=== PATIENT | male | born 1975 | race Caucasian/White ===

== ENCOUNTER 2020-07-29 20:17 | Inpatient (IN) | payer BC ==
[2020-07-29 20:31] VITALS: BMI 24.3
[2020-07-29] MEDS ORDERED: ACETAMINOPHEN 1000 MG/100 ML VIAL (NON FORMULARY) IVPB ONE (20:32)
[2020-07-29] MEDS ORDERED: DEXAMETHASONE SOD PHOSPHATE 10 MG/1 ML VIAL IVPUSH ONE (20:32)
[2020-07-29] MEDS ORDERED: SODIUM CHLORIDE 0.9% 500 ML INFUS.BAG IV ONE (20:33)
[2020-07-29 21:48] LABS: BASO % 0.1 % (0-2.0); HEMATOCRIT 41.5 % (35.4-49); HEMOGLOBIN 13.8 GM/dL (11.7-16.9); LYMPH % 2.5 % (8-40); MCH 29.5 pg (25.7-33.7); MCHC 33.4 g/dl (32.0-35.9); MEAN CELL VOLUME 88.4 fl (80-96); MEAN PLT VOLUME 9.3 fl (7.5-11.1); MONO % 2.2 % (3.8-10.2); NEUT % 95.2 % (42.8-82.8); PLATELET COUNT 227 K/MM3 (134-434); RBC 4.69 M/mm3 (4.00-5.60); RDW 14.1 % (11.9-15.9); WHITE BLOOD COUNT 14.5 K/mm3 (4.0-10.0)
[2020-07-29 21:55] LABS: INR 1.34 (0.83-1.09); PROTHROMBIN TIME (PATIENT) 16.3 SEC (9.7-13.0)
[2020-07-29 21:57] LABS: ACTIVATED PTT 30.7 SECONDS (25.2-36.5)
[2020-07-29 22:02] LABS: POTASSIUM 4.3 mmol/L (3.5-5.1)
[2020-07-29 22:04] LABS: CALCIUM 8.3 mg/dL (8.5-10.1)
[2020-07-29 22:05] LABS: ALBUMIN 3.2 g/dl (3.4-5.0); BLOOD UREA NITROGEN 9.9 mg/dL (7-18)
[2020-07-29 22:07] LABS: BILIRUBIN,DIRECT 0.2 mg/dL (0.0-0.2)
[2020-07-29 22:09] LABS: BILIRUBIN,TOTAL 0.3 mg/dL (0.2-1); TOT PROT 7.6 g/dl (6.4-8.2)
[2020-07-29 23:15] LABS: PLATELET ESTIMATE ADEQUATE
[2020-07-30] MEDS ORDERED: AZITHROMYCIN IVPB 500 MG in DEXTROSE 5%-WATER - 250 ML IVPB ONE (00:42)
[2020-07-30] MEDS ORDERED: AZITHROMYCIN IVPB 0 MG/0 ML BAG IVPB ONE (01:08)
[2020-07-30] MEDS ORDERED: cefTRIAXone SODIUM 1 GM VIAL ONE (01:08)
[2020-07-30] MEDS: CEFTRIAXONE 1 GM in DEXTROSE 5%-WATER - 50 ML IVPB SCH ×2 (01:27→09:17)
[2020-07-30 03:07] LABS: URINE APPEARANCE CLEAR; URINE BILIRUBIN NEGATIVE (NEGATIVE); URINE COLOR YELLOW; URINE GLUCOSE (UA) NEGATIVE (NEGATIVE); URINE KETONE NEGATIVE (NEGATIVE)
[2020-07-30 03:08] LABS: URINE LEUK ESTERASE NEGATIVE (NEGATIVE); URINE NITRITE NEGATIVE (NEGATIVE); URINE PROTEIN 100 (NEGATIVE); URINE RBC 8.9 /uL (0-23.9)
[2020-07-30 03:09] LABS: EPI CELLS 29.2 /uL (0-25.1)
[2020-07-30 03:10] LABS: URINE BACTERIA 111.8 /uL (0-1359)
[2020-07-30 06:37] LABS: HEMATOCRIT 40.4 % (35.4-49); HEMOGLOBIN 13.5 GM/dL (11.7-16.9); MCH 29.7 pg (25.7-33.7); MCHC 33.5 g/dl (32.0-35.9); MEAN CELL VOLUME 88.5 fl (80-96); PLATELET COUNT 245 K/MM3 (134-434); RBC 4.56 M/mm3 (4.00-5.60); RDW 13.9 % (11.9-15.9); WHITE BLOOD COUNT 12.3 K/mm3 (4.0-10.0)
[2020-07-30 07:13] LABS: POTASSIUM 5.2 mmol/L (3.5-5.1)
[2020-07-30 07:16] LABS: ALBUMIN 2.9 g/dl (3.4-5.0); BLOOD UREA NITROGEN 11.5 mg/dL (7-18); MAGNESIUM 2.5 mg/dL (1.8-2.4)
[2020-07-30 07:19] LABS: CREATININE 0.9 mg/dL (0.55-1.3); PHOSPHOROUS 3.7 mg/dL (2.5-4.9)
[2020-07-30 07:21] LABS: BILIRUBIN,TOTAL 0.2 mg/dL (0.2-1)
[2020-07-30] MEDS ORDERED: ASCORBIC ACID 500 MG TABLET (FP) ONE (07:36)
[2020-07-30] MEDS ORDERED: ACETAMINOPHEN 325 MG TABLET (FP) ONE ×2 (07:36→16:28)
[2020-07-30] MEDS ORDERED: CHOLECALCIFEROL (VIT D3) 1,000 UNIT (25 MCG) TABLET ONE (07:37)
[2020-07-30] MEDS ORDERED: FAMOTIDINE 20 MG TABLET ONE (07:37)
[2020-07-30] MEDS ORDERED: ZINC SULFATE 220 MG CAPSULE (FP) ONE (07:37)
[2020-07-30] MEDS: FAMOTIDINE 20 MG TABLET PO SCH (09:02)
[2020-07-30] MEDS: CHOLECALCIFEROL (VIT D3) 5000 UNITS (125 MCG) CAP PO SCH (09:02)
[2020-07-30] MEDS: ASCORBIC ACID 250 MG TABLET (FP) PO SCH (09:02)
[2020-07-30] MEDS: ZINC SULFATE 220 MG CAPSULE (FP) PO SCH ×2 (09:02→21:54)
[2020-07-30] MEDS: ACETAMINOPHEN 325 MG TABLET (FP) PO PRN ×3 (09:05→22:04)
[2020-07-30] MEDS ORDERED: DEXAMETHASONE SOD PHOSPHATE 10 MG/1 ML VIAL ONE (09:05)
[2020-07-30] MEDS ORDERED: CEFTRIAXONE 1 GM/50 ML BAG ONE (09:07)
[2020-07-30] MEDS ORDERED: AZITHROMYCIN IVPB 500 MG/250 ML BAG IVPB ONE (09:07)
[2020-07-30] MEDS ORDERED: ENOXAPARIN NA (PORCINE) 40 MG/0.4 ML DISP.SYRIN SQ ONE (09:11)
[2020-07-30] MEDS: DEXAMETHASONE SOD PHOSPHATE 4 MG/1 ML VIAL IVPUSH SCH (09:17)
[2020-07-30] MEDS: ENOXAPARIN NA (PORCINE) 40 MG/0.4 ML DISP.SYRIN SQ SCH (09:17)
[2020-07-30] MEDS ORDERED: REMDESIVIR 200 MG in SODIUM CHLORIDE 210 ML IVPB ONE (16:00)
[2020-07-31] MEDS: ACETAMINOPHEN 325 MG TABLET (FP) PO PRN ×2 (07:00→19:02)
[2020-07-31] MEDS ORDERED: cefTRIAXone SODIUM 1 GM VIAL ONE (09:17)
[2020-07-31] MEDS ORDERED: DEXTROSE 5%-WATER - 50 ML IVPB ONE (09:17)
[2020-07-31] MEDS: ENOXAPARIN NA (PORCINE) 40 MG/0.4 ML DISP.SYRIN SQ SCH (09:24)
[2020-07-31] MEDS: ZINC SULFATE 220 MG CAPSULE (FP) PO SCH ×2 (09:24→23:21)
[2020-07-31] MEDS: DEXAMETHASONE SOD PHOSPHATE 4 MG/1 ML VIAL IVPUSH SCH (09:24)
[2020-07-31] MEDS: CEFTRIAXONE 1 GM in DEXTROSE 5%-WATER - 50 ML IVPB SCH (09:25)
[2020-07-31] MEDS: CHOLECALCIFEROL (VIT D3) 5000 UNITS (125 MCG) CAP PO SCH (09:25)
[2020-07-31] MEDS: FAMOTIDINE 20 MG TABLET PO SCH (09:25)
[2020-07-31] MEDS: ASCORBIC ACID 250 MG TABLET (FP) PO SCH (09:25)
[2020-07-31] MEDS ORDERED: AZITHROMYCIN IVPB 250 MG in DEXTROSE 5%-WATER - 250 ML IVPB SCH (10:00)
[2020-07-31 13:17] LABS: POTASSIUM 4.5 mmol/L (3.5-5.1)
[2020-07-31 13:19] LABS: CALCIUM 8.7 mg/dL (8.5-10.1)
[2020-07-31 13:20] LABS: BLOOD UREA NITROGEN 18.6 mg/dL (7-18); MAGNESIUM 2.3 mg/dL (1.8-2.4)
[2020-07-31 13:23] LABS: CREATININE 0.9 mg/dL (0.55-1.3); PHOSPHOROUS 3.5 mg/dL (2.5-4.9)
[2020-07-31] MEDS: REMDESIVIR 100 MG in SODIUM CHLORIDE 230 ML IVPB SCH (15:04)
[2020-08-01 09:01] LABS: HEMATOCRIT 38.5 % (35.4-49); HEMOGLOBIN 12.9 GM/dL (11.7-16.9); MCH 29.5 pg (25.7-33.7); MCHC 33.5 g/dl (32.0-35.9); MEAN CELL VOLUME 88.3 fl (80-96); MEAN PLT VOLUME 8.9 fl (7.5-11.1); PLATELET COUNT 354 K/MM3 (134-434); RBC 4.37 M/mm3 (4.00-5.60); RDW 13.9 % (11.9-15.9); WHITE BLOOD COUNT 9.6 K/mm3 (4.0-10.0)
[2020-08-01 09:26] LABS: CALCIUM 8.9 mg/dL (8.5-10.1)
[2020-08-01 09:27] LABS: ALBUMIN 2.5 g/dl (3.4-5.0); BLOOD UREA NITROGEN 18.8 mg/dL (7-18)
[2020-08-01 09:28] LABS: MAGNESIUM 2.2 mg/dL (1.8-2.4)
[2020-08-01 09:30] LABS: CREATININE 0.7 mg/dL (0.55-1.3); PHOSPHOROUS 4.3 mg/dL (2.5-4.9)
[2020-08-01 09:31] LABS: BILIRUBIN,TOTAL 0.4 mg/dL (0.2-1)
[2020-08-01 09:32] LABS: TOT PROT 6.5 g/dl (6.4-8.2)
[2020-08-01] MEDS: ZINC SULFATE 220 MG CAPSULE (FP) PO SCH (11:35)
[2020-08-01] MEDS: FAMOTIDINE 20 MG TABLET PO SCH (11:35)
[2020-08-01] MEDS: ENOXAPARIN NA (PORCINE) 40 MG/0.4 ML DISP.SYRIN SQ SCH (11:36)
[2020-08-01] MEDS: DEXAMETHASONE SOD PHOSPHATE 4 MG/1 ML VIAL IVPUSH SCH (11:36)
[2020-08-01] MEDS: CHOLECALCIFEROL (VIT D3) 5000 UNITS (125 MCG) CAP PO SCH (14:43)
[2020-08-01] MEDS: ASCORBIC ACID 250 MG TABLET (FP) PO SCH (14:43)
[2020-08-01] MEDS: REMDESIVIR 100 MG in SODIUM CHLORIDE 230 ML IVPB SCH (16:41)
[2020-08-02] MEDS: DEXAMETHASONE SOD PHOSPHATE 4 MG/1 ML VIAL IVPUSH SCH (10:14)
[2020-08-02] MEDS: FAMOTIDINE 20 MG TABLET PO SCH (10:20)
[2020-08-02] MEDS: ENOXAPARIN NA (PORCINE) 40 MG/0.4 ML DISP.SYRIN SQ SCH (10:34)
[2020-08-02] MEDS: ASCORBIC ACID 500 MG TABLET (FP) PO SCH ×2 (12:37→21:23)
[2020-08-02] MEDS: ZINC SULFATE 220 MG CAPSULE (FP) PO SCH (12:37)
[2020-08-02] MEDS: CHOLECALCIFEROL (VIT D3) 1,000 UNIT (25 MCG) TABLET PO SCH (12:37)
[2020-08-02] MEDS: REMDESIVIR 100 MG in SODIUM CHLORIDE 230 ML IVPB SCH (16:02)
[2020-08-03] MEDS: FAMOTIDINE 20 MG TABLET PO SCH (10:06)
[2020-08-03] MEDS: ASCORBIC ACID 500 MG TABLET (FP) PO SCH (10:06)
[2020-08-03] MEDS: ZINC SULFATE 220 MG CAPSULE (FP) PO SCH (10:06)
[2020-08-03] MEDS: ENOXAPARIN NA (PORCINE) 40 MG/0.4 ML DISP.SYRIN SQ SCH (10:06)
[2020-08-03] MEDS: DEXAMETHASONE SOD PHOSPHATE 4 MG/1 ML VIAL IVPUSH SCH (10:06)
[2020-08-03] MEDS: CHOLECALCIFEROL (VIT D3) 1,000 UNIT (25 MCG) TABLET PO SCH (10:06)
[2020-08-03] MEDS: REMDESIVIR 100 MG in SODIUM CHLORIDE 230 ML IVPB SCH (16:08)
[2020-08-03 17:22] VITALS: BP 105/69
[2020-08-03 17:44] LABS: POTASSIUM 5.4 mmol/L (3.5-5.1)
[2020-08-03 17:46] LABS: ALBUMIN 2.6 g/dl (3.4-5.0); BLOOD UREA NITROGEN 15.7 mg/dL (7-18); CALCIUM 8.6 mg/dL (8.5-10.1)
[2020-08-03 17:49] LABS: CREATININE 0.8 mg/dL (0.55-1.3)
[2020-08-03 17:51] LABS: BILIRUBIN,TOTAL 0.3 mg/dL (0.2-1); TOT PROT 6.6 g/dl (6.4-8.2)
[2020-08-03 18:23] VITALS: PULSE 75; TEMP 97.8
== END 2020-08-03 20:16 | disposition home or self-care (01) | DRG 177 ==
LOC: JER 20:17 → JERBED 22:48 → J5S 07-30 18:27
PROVIDERS: ADMIT Internal Medicine; ATTEND Student in an Organized Health Care Education/Training Program
PROC: XW033E5 Introduction of Remdesivir Anti-infective into Peripheral Vein, Percutaneous Approach, New Technology Group 5 (ICD-10-PCS; principal; 2020-07-30)
PROC: XW13325 Transfusion of Convalescent Plasma (Nonautologous) into Peripheral Vein, Percutaneous Approach, New Technology Group 5 (ICD-10-PCS; 2020-07-30)
DX: U07.1 COVID-19 (principal); J96.01 Acute respiratory failure with hypoxia; J12.82 Pneumonia due to coronavirus disease 2019; E87.1 Hypo-osmolality and hyponatremia
CPT/HCPCS: 36415; 36430; 71045-TC-FY; 80048; 80053; 81003; 82248; 82550; 82728; 83605; 83615; 83735; 84100; 84484; 85025; 85027; 85379; 85610; 85730; 86140; 86769; 86850; 86900; 86901; 87040; 87070; 87086; 87205; 87804; 87899; 93005; 93010; 94010; 99285-25; C9399; C9803; J0131; J1100; P9017; U0003